=== PATIENT | female | born 1950 | race Caucasian/White ===

== ENCOUNTER → 2019-05-25 13:02 | Outpatient (CLI) | payer MEDICARE, SELFPAY ==
--- NOTE | 2019-05-25 | DI.US.S_ITS ---
LIMITED ULTRASOUND OF LEFT BREAST: 05/25/2019 CLINICAL: Additional evaluation requested from prior study. Comparison is made to exams dated: 05/15/2019 mammogram and 03/06/2019 mammogram - [facility]. Color flow and real-time ultrasound of the left breast 2-3 o'clock region were performed. Norton scale images of the real-time examination were reviewed. There is a 1 cm x 0.5 cm x 1.1 cm oval cyst with a septated internal wall in the left breast at 3 o'clock 4 cm from the nipple. This oval cyst is hypoechoic with a well-defined boundary and posterior acoustic enhancement. This correlates with mammography findings. Color flow imaging demonstrates that there is no vascularity present. IMPRESSION: PROBABLY BENIGN Complicated cyst in the left breast measuring 1.1 cm most likely is complicated cysts and is probably benign. A follow-up mammogram and an ultrasound in 6 months is recommended to demonstrate stability. Exam findings and recommendation were conveyed to the patient by the security assistant. The patient should return sooner if any mass or significant change is felt. This exam was interpreted at Station ID: [id number]. Electronically Signed By: Leonard Greenfield M.D. [facility] [place]/:05/28/2019 14:49:40 Entry: - 05/28/2019 14:49:40 letter sent: Followup Recommended Ultrasound BI-RADS: 3 Probably benign
== END ==
PROVIDERS: Visit Provider Student in an Organized Health Care Education/Training Program
DX: R92.8 Other abnormal and inconclusive findings on diagnostic imaging of breast (principal); N60.02 Solitary cyst of left breast
CPT/HCPCS: 76642

== ENCOUNTER → 2019-08-13 09:40 | Outpatient (CLI) | payer MEDICARE, SELFPAY ==
[2019-08-13 10:37] LABS: Blood Urea Nitrogen 12 mg/dL (7-17); Calcium 9.5 mg/dL (8.4-10.2); Carbon Dioxide 30 mmol/L (22-32); Chloride 103 mmol/L (98-107); Estimated Glomerular Filt Rate > 60.0 mL/min (>60); Glucose 90 mg/dL (80-110); HEMOLYSIS < 15 (0-50); Potassium 4.7 mmol/L (3.4-5.1); Sodium 140 mmol/L (137-145)
[2019-08-13 11:08] LABS: Cancer Antigen 125 16 U/mL (0-35)
--- NOTE | 2019-08-13 12:57 | DI.CT.S_ITS ---
PROCEDURE: CT CHEST ABD PEL W CON INDICATIONS: Rule out metastasis of endometrial carcinoma TECHNIQUE: After the administration of oral and intravenous contrast, 5 mm thick sections acquired from the lung apices to the symphysis. 5 mm coronal and sagittal reformats were performed, with additional 7 mm coronal MIP reformats through the lungs. For radiation dose reduction, the following was used: automated exposure control, adjustment of mA and/or kV according to patient size. COMPARISON: None. FINDINGS: Image quality: Excellent. CHEST: Lungs and pleura: 3 mm subpleural pulmonary nodule, image 158/6, lateral segment right middle lobe. No other pulmonary nodules. Linear atelectasis versus scarring, bilateral lung bases. No acute airspace opacities. No pleural effusions or pneumothorax. Central and peripheral airways appear patent and normal in caliber. Mediastinum: Heart size is normal. No pericardial effusion. No mediastinal or hilar adenopathy by size criteria. Thoracic aorta and central pulmonary arteries are normal in size. Esophagus is normal in caliber. No hiatal hernia. Chest wall: No axillary or supraclavicular adenopathy by size criteria. Thyroid gland is unremarkable. ABDOMEN: Solid organs: Liver is normal in size and enhancement. Probable sub-centimeters cyst versus hemangioma, near the dome of the liver. Gallbladder is unremarkable. Biliary system is non dilated. Pancreas enhances normally. Spleen is normal in size and enhancement. No adrenal nodules. Kidneys demonstrate normal size and enhancement, without hydronephrosis. Peritoneum and bowel: Bowel loops demonstrate normal wall thickness and caliber. No free fluid or air. Nodes and vessels: No retroperitoneal or mesenteric adenopathy by size criteria. Aorta and inferior vena cava are normal in size. Miscellaneous: No ventral hernias. PELVIS: Genitourinary: Bladder wall thickness is normal. Miscellaneous: No inguinal hernias or adenopathy. Small uterine fibroid. Endometrial thickening is not well delineated on this CT. Bones: No suspicious bony lesions. No vertebral body compression fractures. IMPRESSION: 1. 3 mm noncalcified pulmonary nodule, right lung. No other pulmonary nodules. 2. Uterine fibroid. 3. No evidence metastatic disease in the abdomen and pelvis. Dictated by: Myke Diaz M.D. on 08/13/2019 at 15:33 Approved by: Myke Diaz M.D. on 08/13/2019 at 15:38
== END ==
DX: Z01.812 Encounter for preprocedural laboratory examination (principal); C54.1 Malignant neoplasm of endometrium; R91.1 Solitary pulmonary nodule; D25.9 Leiomyoma of uterus, unspecified
CPT/HCPCS: 36415; 71260; 74177; 80048; 86304; Q9967

== ENCOUNTER → 2020-02-14 09:30 | Outpatient (CLI) | payer MEDICARE, SELFPAY ==
--- NOTE | 2020-02-14 | DI.US.S_ITS ---
ULTRASOUND OF LEFT BREAST: 02/14/2020 CLINICAL: 6 month follow-up of cysts. Comparison is made to exams dated: 02/14/2020 mammogram, 05/25/[address] ultrasound - [facility], 05/15/2019 mammogram, and 03/06/2019 mammogram - [facility]. Color flow and real-time ultrasound of the left breast were performed. Norton scale images of the real-time examination were reviewed. There is a 1.1 cm x 0.3 cm x 0.9 cm oval cyst with smooth internal leon/septations in the left breast at 3 o'clock middle depth 4 cm from the nipple. This oval cyst is hypoechoic with internal echoes and posterior acoustic enhancement. This abnormality is not significantly changed and correlates with mammography findings. Color flow imaging demonstrates that there is no vascularity present. IMPRESSION: PROBABLY BENIGN The 1.1 cm x 0.3 cm x 0.9 cm oval cyst in the left breast most likely is a complicated cyst and is probably benign. A follow-up bilateral mammogram and a left ultrasound in 12 months is recommended to document two years of stability. Findings and recommendations were relayed to the patient during today's visit. This exam was interpreted at Station ID: [id number]. Electronically Signed By: Geronimo Sewell M.D. at/:02/14/2020 11:02:48 letter sent: Followup Recommended Ultrasound BI-RADS: 3 Probably benign
--- NOTE | 2020-02-14 10:06 | DI.MG.S_ITS ---
PORSCHE PETTIT date: 1950 Sex: F Attending Physician: XUAN Indications: Date: 02/14/2020 09:49 At the request of: MARY GOVEA MD Procedure: MM diagnostic mammo BI BILATERAL DIGITAL DIAGNOSTIC MAMMOGRAM 3D/2D: 02/14/2020 CLINICAL: Short follow up. Comparison is made to exams dated: 05/15/2019 mammogram and 03/06/2019 mammogram - [facility]. There are scattered fibroglandular elements in both breasts. There is an oval equal density mass in the left breast at 3 o'clock middle depth. This is not significantly changed and correlates with prior ultrasound findings. No other significant masses, calcifications, or other findings are seen in either breast. IMPRESSION: INCOMPLETE: NEEDS ADDITIONAL IMAGING EVALUATION The oval equal density mass in the left breast most likely is a cyst but remains indeterminate. An ultrasound is recommended for further evaluation and is scheduled to immediately follow this study. This exam was interpreted at Station ID: [id number]. NOTE: For mammograms, a report in lay terms will be sent to the patient. Approximately 15% of breast malignancies will not be visualized mammographically. In the management of a palpable breast mass, a negative mammogram must not discourage biopsy of a clinically suspicious lesion. Electronically Signed By: Geronimo Sewell M.D. aty/:02/14/2020 10:58:55 ACR BI-RADS Category 0: Incomplete 3340F
== END ==
PROVIDERS: PCP Family Medicine; Referring Provider Student in an Organized Health Care Education/Training Program; Visit Provider Student in an Organized Health Care Education/Training Program
DX: R92.8 Other abnormal and inconclusive findings on diagnostic imaging of breast (principal); N60.02 Solitary cyst of left breast
CPT/HCPCS: 76642; 77066; G0279

== ENCOUNTER → 2021-02-16 11:43 | Outpatient (CLI) | payer MEDICARE, SELFPAY ==
--- NOTE | 2021-02-16 | DI.MG.S_ITS ---
BILATERAL DIGITAL DIAGNOSTIC MAMMOGRAM 3D/2D: 02/16/2021 CLINICAL: 1 year follow up per prior exam. Comparison is made to exams dated: 02/14/2020 mammogram - [facility], 05/15/2019 mammogram, and 03/06/2019 mammogram - [facility]. There are scattered fibroglandular elements in both breasts. The oval equal density mass in the left breast at 3 o'clock middle depth is no longer seen. No other significant masses, calcifications, or other findings are seen in either breast. IMPRESSION: INCOMPLETE: NEEDS ADDITIONAL IMAGING EVALUATION Previously described cyst is no longer identified. An ultrasound has been previously recommended and is scheduled to immediately follow this study. This exam was interpreted at Station ID: [id number]. NOTE: For mammograms, a report in lay terms will be sent to the patient. Approximately 15% of breast malignancies will not be visualized mammographically. In the management of a palpable breast mass, a negative mammogram must not discourage biopsy of a clinically suspicious lesion. Electronically Signed By: Cesar Cohen M.D. jr/:02/16/2021 13:34:25 letter sent: Additional Imaging Needed ACR BI-RADS Category 0: Incomplete 3340F
--- NOTE | 2021-02-16 | DI.US.S_ITS ---
LIMITED ULTRASOUND OF LEFT BREAST: 02/16/2021 CLINICAL: Patient returns today to evaluate a density in the left breast. Comparison is made to exams dated: 02/16/2021 mammogram, 02/14/2020 ultrasound, 02/14/2020 mammogram, 05/25/2019 ultrasound - [facility], 05/15/2019 mammogram, and 03/06/2019 mammogram - [facility]. Color flow and real-time ultrasound of the left breast 3 o'clock region were performed. Norton scale images of the real-time examination were reviewed. The previously seen oval cyst in the left breast at 3 o'clock middle depth is no longer seen. This correlates with mammography findings. IMPRESSION: BENIGN There is no sonographic evidence of malignancy. Return to annual mammogram screening schedule is recommended. This exam was interpreted at Station ID: [id number]. Electronically Signed By: Cesar Cohen M.D. jr/:02/17/2021 12:45:44 letter sent: Normal Exam Ultrasound BI-RADS: 2 Benign
== END ==
PROVIDERS: PCP Family Medicine; Referring Provider Family Medicine; Visit Provider Family Medicine
DX: R92.8 Other abnormal and inconclusive findings on diagnostic imaging of breast (principal)
CPT/HCPCS: 76642; 77066; G0279

== ENCOUNTER → 2022-02-24 08:13 | Outpatient (CLI) | payer MEDICARE, SELFPAY ==
--- NOTE | 2022-02-24 08:15 | DI.MG.S_ITS ---
BILATERAL DIGITAL SCREENING MAMMOGRAM 3D/2D WITH CAD: 02/24/2022 CLINICAL: Routine screening. Family history of breast cancer. Comparison is made to exams dated: 02/16/2021 mammogram, 02/14/2020 mammogram - [facility], 05/15/2019 mammogram, and 03/06/2019 mammogram - [facility]. There are scattered fibroglandular elements in both breasts. Current study was also evaluated with a Computer Aided Detection (CAD) system. No significant masses, calcifications, or other findings are seen in either breast. There has been no significant interval change. IMPRESSION: NEGATIVE There is no mammographic evidence of malignancy. A 1 year screening mammogram is recommended. Based on the Tyrer Cuzick model (a risk assessment model) the patient's lifetime risk is 2.7% and her 10 year risk is 1.8%. According to the ACR, ACS, and NCCN guidelines, an annual breast MRI exam along with mammogram is recommended if the patient's lifetime risk is 20% or greater. This exam was interpreted at Station ID: [id number]. NOTE: For mammograms, a report in lay terms will be sent to the patient. Approximately 15% of breast malignancies will not be visualized mammographically. In the management of a palpable breast mass, a negative mammogram must not discourage biopsy of a clinically suspicious lesion. Electronically Signed By: Ross schaffer/domitila:02/24/2022 12:26:05 letter sent: Normal Exam ACR BI-RADS Category 1: Negative 3341F
== END ==
PROVIDERS: PCP Family Medicine; Referring Provider Family Medicine; Visit Provider Family Medicine
DX: Z12.31 Encounter for screening mammogram for malignant neoplasm of breast (principal); Z80.3 Family history of malignant neoplasm of breast
CPT/HCPCS: 77063; 77067

== ENCOUNTER 2022-04-29 08:30 | Outpatient (RCR) | payer MEDICARE, SELFPAY | END 2022-04-29 08:31 | LOC: PUL 08:30 | PROVIDERS: PCP Family Medicine; Referring Provider Internal Medicine Pulmonary Disease; Visit Provider Internal Medicine Pulmonary Disease | DX: U09.9 Post COVID-19 condition, unspecified (principal) | CPT/HCPCS: 94626 ==

== ENCOUNTER → 2023-04-26 | Outpatient (CLI) | payer MEDICARE, SELFPAY ==
--- NOTE | 2023-04-26 | DI.MG.S_ITS ---
BILATERAL DIGITAL SCREENING MAMMOGRAM 3D/2D WITH CAD: 04/26/2023 CLINICAL: Routine screening. Family history of breast cancer. Comparison is made to exams dated: 02/24/2022 mammogram, 02/16/2021 mammogram, and 02/14/2020 mammogram - [facility]. There are scattered areas of fibroglandular density in both breasts (category b / 25%-50% glandular tissue). Current study was also evaluated with a Computer Aided Detection (CAD) system. No significant masses, calcifications, or other findings are seen in either breast. There has been no significant interval change. IMPRESSION: NEGATIVE There is no mammographic evidence of malignancy. A 1 year screening mammogram is recommended. Based on the Tyrer Cuzick model (a risk assessment model) the patient's lifetime risk is 2.5% and her 10 year risk is 1.9%. According to the ACR, ACS, and NCCN guidelines, an annual breast MRI exam along with mammogram is recommended if the patient's lifetime risk is 20% or greater. This exam was interpreted at Station ID: [id number]. NOTE: For mammograms, a report in lay terms will be sent to the patient. Approximately 15% of breast malignancies will not be visualized mammographically. In the management of a palpable breast mass, a negative mammogram must not discourage biopsy of a clinically suspicious lesion. Electronically Signed By: Geronimo hayes/domitila:05/01/2023 14:19:19 letter sent: Normal Exam ACR BI-RADS Category 1: Negative [id number]
== END ==
LOC: MAMMO 14:23
PROVIDERS: PCP Family Medicine; Referring Provider Family Medicine; Visit Provider Family Medicine
DX: Z12.31 Encounter for screening mammogram for malignant neoplasm of breast (principal)
CPT/HCPCS: 77063; 77067

== ENCOUNTER → 2024-12-04 08:06 | Outpatient (CLI) | payer MEDICARE, SELFPAY ==
--- NOTE | 2024-12-04 08:08 | DI.MG.S_ITS ---
MM screening mammo BI: 12/04/2024. BI-RADS: 1 CLINICAL: 74-year old female for bilateral screening mammogram. Tyrer-Cuzick lifetime risk of 2.1%. No personal or first-degree family history of breast cancer. PRIOR EXAMS 04/26/2023, 02/24/2022, 02/16/2021, 02/14/2020, 05/25/2019. MAMMOGRAPHY TECHNIQUE: 2D and 3D (tomosynthesis) digital mammographic views obtained, with additional images as needed for full coverage. Current study was also evaluated with a Computer Aided Detection (CAD) system. DENSITY B. There are scattered areas of fibroglandular density. MAMMOGRAPHY FINDINGS Bilateral: No suspicious mass, asymmetry, microcalcification, or other abnormality seen. IMPRESSION: * No evidence of malignancy. RECOMMENDATIONS Bilateral * Annual screening mammography. OVERALL ASSESSMENT CATEGORY BI-RADS-1: Negative. The [employer] recommends annual screening mammography beginning at age 40 for women with average risk of breast cancer. ELECTRONICALLY SIGNED: Aline Avila M.D. on 12/04/2024 at 12:32:37 PM PT Interpreting Station ID: [id number]
== END ==
PROVIDERS: PCP Nurse Practitioner Family; Referring Provider Nurse Practitioner Family; Visit Provider Nurse Practitioner Family
DX: Z12.31 Encounter for screening mammogram for malignant neoplasm of breast (principal)
CPT/HCPCS: 77063; 77067